=== PATIENT | female | born 1950 | race African-American/Black ===

== ENCOUNTER 2024-10-20 09:43 | Inpatient (IN) | payer OTHER ==
[~2024-10-20] VITALS: Ht 167.6 cm; Wt 90.3 kg
[2024-10-20 09:46] VITALS: O2SAT 99
[2024-10-20] MEDS: ASPIRIN 81MG TABLET PO ONE (10:20)
[2024-10-20 11:17] LABS: CHLORIDE 107 mEq/L (98-107); POTASSIUM 4.1 mEq/L (3.5-5.1); SODIUM 140 mEq/L (136-145)
[2024-10-20 11:18] LABS: BASOPHILS % 0.8 % (0.0-2.0); CALCIUM 9.7 mg/dL (8.7-10.4); CARBON DIOXIDE 26 mEq/L (21-32); EOSINOPHILS % 0.4 % (0.0-5.0); HEMATOCRIT. 38.7 % (36.0-48.0); HEMOGLOBIN. 12.5 g/dL (12.0-16.0); LYMPHOCYTES % 11.6 % (20.0-50.0); MEAN CORPUSCULAR HEMOGLOBIN 28.8 pg (28.0-32.0); MEAN CORPUSCULAR HGB CONC 32.4 g/dL (31.0-37.0); MEAN CORPUSCULAR VOLUME 88.7 fL (81.0-99.0); MEAN PLATELET VOLUME 8.2 fl (7.4-10.4); MONOCYTES % 11.7 % (2.0-8.0); NEUTROPHILS % 75.5 % (40.0-76.0); PLATELET 285 x1000/uL (130-400); RED BLOOD CELL COUNT 4.36 mill/uL (4.2-5.4); WHITE BLOOD COUNT 8.8 x1000/uL (4.5-11.0)
[2024-10-20 11:23] LABS: CREATININE 0.6 mg/dL (0.6-1.0); GLUCOSE 126 mg/dL (70-105); UREA NITROGEN BLOOD 8 mg/dL (9-23)
[2024-10-20 11:24] LABS: TROPONIN I HIGH SENSITIVITY 17 ng/L (3.0-34)
[2024-10-20 11:25] LABS: CREATINE KINASE 131 IU/L (34-145)
[2024-10-20 12:45] VITALS: BP 188/79; PULSE 106; RESP 18; TEMP 35.7; TEMP 35.8; O2SAT 99
[2024-10-20] MEDS ORDERED: IPRATROPIUM/ALBUTEROL 0.5-3(2.5)MG/3ML NEB HHN PRN (12:45)
[2024-10-20] MEDS ORDERED: ACETAMINOPHEN 325MG TABLET PO PRN (12:45)
[2024-10-20] MEDS ORDERED: DEXTROSE 50% WATER 50ML SYRINGE IV PRN (12:45)
[2024-10-20] MEDS ORDERED: DOCUSATE SODIUM 100MG CAPSULE PO PRN (12:45)
[2024-10-20] MEDS ORDERED: LORAZEPAM 0.5MG TABLET PO PRN (12:45)
[2024-10-20] MEDS: BLOOD SUGAR DIAGNOSTIC STRIP TEST SCH (13:00)
[2024-10-20] MEDS ORDERED: AMLODIPINE 5MG TABLET PO SCH (13:00)
[2024-10-20] MEDS: INSULIN LISPRO 100 UNITS/ML SUBCUT SCH (13:20)
[2024-10-20 16:00] VITALS: PULSE 96; RESP 20; TEMP 36.2; O2SAT 100
[2024-10-20 19:32] LABS: CREATINE KINASE 115 IU/L (34-145)
[2024-10-20 19:36] LABS: PARTIAL THROMBOPLASTIN TIME 29.7 sec (23.4-31.0); PROTHROMBIN TIME 11.2 sec (9.6-11.0); VITAMIN B12 SERUM 955 pg/mL (211-911)
[2024-10-20 20:00] VITALS: BP 158/57; PULSE 99; RESP 18; TEMP 35.9; O2SAT 100
[2024-10-20] MEDS: AMLODIPINE 5MG TABLET PO SCH (21:09)
[2024-10-21] VITALS: BP 164/68; PULSE 93; RESP 18; TEMP 36.5; O2SAT 100
[2024-10-21 00:14] LABS: CREATINE KINASE 165 IU/L (34-145)
[2024-10-21] MEDS: CLONIDINE 0.1MG TABLET PO PRN (00:55)
[2024-10-21 04:00] VITALS: BP 148/86; PULSE 91; RESP 18; TEMP 36.5; O2SAT 99
[2024-10-21] MEDS: PANTOPRAZOLE 40MG DR TABLET PO SCH (06:04)
[2024-10-21 06:57] LABS: CALCIUM 9.1 mg/dL (8.7-10.4); CHLORIDE 108 mEq/L (98-107)
[2024-10-21 06:58] LABS: CARBON DIOXIDE 25 mEq/L (21-32); POTASSIUM 3.6 mEq/L (3.5-5.1); SODIUM 142 mEq/L (136-145)
[2024-10-21 07:03] LABS: BASOPHILS % 0.5 % (0.0-2.0); EOSINOPHILS % 0.8 % (0.0-5.0); HEMATOCRIT. 34.8 % (36.0-48.0); HEMOGLOBIN. 11.5 g/dL (12.0-16.0); LYMPHOCYTES % 18.2 % (20.0-50.0); MEAN CORPUSCULAR HEMOGLOBIN 29.4 pg (28.0-32.0); MEAN CORPUSCULAR HGB CONC 33.1 g/dL (31.0-37.0); MEAN CORPUSCULAR VOLUME 88.7 fL (81.0-99.0); MEAN PLATELET VOLUME 8.4 fl (7.4-10.4); MONOCYTES % 12.4 % (2.0-8.0); NEUTROPHILS % 68.1 % (40.0-76.0); PLATELET 284 x1000/uL (130-400); RED BLOOD CELL COUNT 3.92 mill/uL (4.2-5.4); RED CELL DISTRIBUTION WIDTH 13.7 % (11.6-14.6); WHITE BLOOD COUNT 6.7 x1000/uL (4.5-11.0)
[2024-10-21 07:04] LABS: CREATININE 0.8 mg/dL (0.6-1.0); GLUCOSE 134 mg/dL (70-105); UREA NITROGEN BLOOD 8 mg/dL (9-23)
[2024-10-21 08:00] VITALS: BP 158/74; PULSE 93; RESP 17; TEMP 36.9; O2SAT 99
[2024-10-21] MEDS: ENOXAPARIN 40MG/0.4ML SYR SUBCUT SCH (09:00)
[2024-10-21 12:00] VITALS: BP 143/56; PULSE 86; RESP 18; TEMP 36.6; O2SAT 99
[2024-10-21] MEDS ORDERED: LORAZEPAM 0.5MG TABLET PO PRN (12:45)
[2024-10-21] MEDS: ACETAMINOPHEN 325MG TABLET PO PRN (13:44)
[2024-10-21] MEDS ORDERED: GADOTERATE MEGLUMINE 5 MMOL/10 ML VIAL IV ONE (15:38)
[2024-10-21 16:00] VITALS: BP 154/68; PULSE 80; RESP 18; TEMP 36.2; O2SAT 99
[2024-10-21] MEDS: DEXAMETHASONE 4MG TABLET PO SCH (17:49)
[2024-10-21 20:00] VITALS: BP 158/66; PULSE 90; RESP 16; TEMP 36.8; O2SAT 97
[2024-10-22] VITALS (29 sets, daily range): BP systolic 129–181; BP diastolic 56–124; PULSE 87–101; RESP 11–30; TEMP 35.9–37; O2SAT 96–99
[2024-10-22] MEDS: HYDRALAZINE HCL 10MG TABLET PO PRN (05:23)
[2024-10-22 07:09] LABS: CHLORIDE 110 mEq/L (98-107); POTASSIUM 3.9 mEq/L (3.5-5.1); SODIUM 141 mEq/L (136-145)
[2024-10-22 07:10] LABS: CARBON DIOXIDE 25 mEq/L (21-32)
[2024-10-22 07:11] LABS: CALCIUM 9.2 mg/dL (8.7-10.4)
[2024-10-22 07:15] LABS: GLUCOSE 132 mg/dL (70-105); UREA NITROGEN BLOOD 6 mg/dL (9-23)
[2024-10-22 08:51] LABS: CREATININE 0.5 mg/dL (0.6-1.0)
[2024-10-22] MEDS: AMLODIPINE 5MG TABLET PO SCH ×2 (08:52→17:09)
[2024-10-22] MEDS: KETOROLAC 15MG/ML VIAL IV PRN (12:10)
[2024-10-22] MEDS: CLONIDINE 0.1MG TABLET PO PRN (20:08)
[2024-10-22] MEDS: DEXT 5%/LACTATED RINGERS 1,000 ML IV SCH (20:28)
[2024-10-22] MEDS: NICARDIPINE 100 MG in SODIUM CHLORIDE 0.9% 60 ML IV PRN (20:55)
[2024-10-22] MEDS ORDERED: LEVETIRACETAM 500MG PREMIX 100 ML IV SCH (21:00)
[2024-10-23] VITALS (63 sets, daily range): BP systolic 105–174; BP diastolic 50–152; PULSE 66–98; RESP 12–25; TEMP 36.1–36.9; O2SAT 89–100
[2024-10-23] MEDS: LEVETIRACETAM 500MG PREMIX 100 ML IV SCH (05:12)
[2024-10-23 06:16] LABS: CHLORIDE 108 mEq/L (98-107); POTASSIUM 3.6 mEq/L (3.5-5.1); SODIUM 140 mEq/L (136-145)
[2024-10-23 06:17] LABS: CARBON DIOXIDE 25 mEq/L (21-32)
[2024-10-23 06:22] LABS: BASOPHILS % 0.2 % (0.0-2.0); CREATININE 0.6 mg/dL (0.6-1.0); GLUCOSE 154 mg/dL (70-105); HEMOGLOBIN. 11.4 g/dL (12.0-16.0); MEAN CORPUSCULAR HEMOGLOBIN 29.3 pg (28.0-32.0); MEAN CORPUSCULAR HGB CONC 32.7 g/dL (31.0-37.0); MEAN CORPUSCULAR VOLUME 89.8 fL (81.0-99.0); MEAN PLATELET VOLUME 8.7 fl (7.4-10.4); NEUTROPHILS % 85.8 % (40.0-76.0); PLATELET 297 x1000/uL (130-400); RED CELL DISTRIBUTION WIDTH 13.7 % (11.6-14.6); UREA NITROGEN BLOOD 12 mg/dL (9-23); WHITE BLOOD COUNT 9.3 x1000/uL (4.5-11.0)
[2024-10-23 06:24] LABS: PHOSPHORUS 2.8 mg/dL (2.5-4.9)
[2024-10-23 06:29] LABS: PARTIAL THROMBOPLASTIN TIME 26.7 sec (23.4-31.0); PROTHROMBIN TIME 10.7 sec (9.6-11.0)
[2024-10-23] MEDS ORDERED: GENTAMICIN SULF 40MG/ML 2ML VIAL ONE (08:50)
[2024-10-23] MEDS ORDERED: LIDOCAINE HCL/EPINEPHRINE 1%-EPI 1:100,000 20ML VIAL ONE (08:50)
[2024-10-23] MEDS ORDERED: BACITRACIN 14GM TUBE TOP ONE (08:50)
[2024-10-23] MEDS ORDERED: THROMBIN (BOVINE) 5000 UNITS/VIAL TOP ONE (08:50)
[2024-10-23] MEDS: DEXAMETHASONE 4MG/ML 1ML VIAL IV SCH (09:21)
[2024-10-23] MEDS ORDERED: CEFAZOLIN SODIUM 1000MG/VIAL ONE (10:19)
[2024-10-23] MEDS ORDERED: ETOMIDATE 2MG/ML 10ML VIAL IV ONE (10:19)
[2024-10-23] MEDS ORDERED: ROCURONIUM BROMIDE 10MG/ML VIAL 5ML IV ONE (10:19)
[2024-10-23] MEDS ORDERED: MIDAZOLAM HCL 2 MG/2 ML VIAL ONE ×2 (10:20→10:21)
[2024-10-23] MEDS ORDERED: FENTANYL CITRATE/PF 50MCG/ML 2ML VIAL ONE (10:20)
[2024-10-23] MEDS ORDERED: CLINDAMYCIN 900MG PREMIX 50 ML IV ONE (10:40)
[2024-10-23] MEDS ORDERED: MANNITOL 20% 500 ML IV ONE (11:16)
[2024-10-23] MEDS: KCL 20MEQ/100ML PREMIX 100 ML IV SCH (11:30)
[2024-10-23] MEDS ORDERED: PROPOFOL 200MG/20ML VIAL IV ONE (12:02)
[2024-10-23] MEDS ORDERED: SUGAMMADEX SODIUM 200MG/2ML VIAL IV ONE (12:54)
[2024-10-23] MEDS ORDERED: NEOSTIGMINE METHYLSULFATE 1MG/ML 10 ML VIAL ONE (13:05)
[2024-10-23] MEDS ORDERED: GLYCOPYRROLATE 0.2 MG/ML 2ML VIAL ONE ×2 (13:06)
[2024-10-23] MEDS ORDERED: LEVETIRACETAM 500 MG in SODIUM CHLORIDE 0.9% 100 ML IV SCH (13:15)
[2024-10-23] MEDS ORDERED: NALOXONE HCL 0.4MG/ML VIAL IV PRN (13:30)
[2024-10-23] MEDS: MORPHINE SULFATE 4 MG/ML INJ (FOR IV/IM USE) IV PRN (14:01)
[2024-10-23] MEDS: NICARDIPINE 100 MG in SODIUM CHLORIDE 0.9% 60 ML IV PRN (14:36)
[2024-10-23] MEDS ORDERED: LABETALOL IV PRN (20:15)
[2024-10-23] MEDS ORDERED: DEXT 5% IV PRN (20:15)
[2024-10-23] MEDS ORDERED: WATER IV PRN (20:15)
[2024-10-23] MEDS: LABETALOL 5MG/ML 4ML INJ IV NR (20:37)
[2024-10-24] VITALS (100 sets, daily range): BP systolic 83–154; BP diastolic 41–109; PULSE 69–110; RESP 12–25; TEMP 36.1–36.8; O2SAT 96–100
[2024-10-24] MEDS: LABETALOL 5MG/ML 4ML INJ IV PRN (00:24)
[2024-10-24 06:35] LABS: HEMATOCRIT. 34.7 % (36.0-48.0); HEMOGLOBIN. 11.5 g/dL (12.0-16.0); MEAN CORPUSCULAR HGB CONC 33.3 g/dL (31.0-37.0); MEAN CORPUSCULAR VOLUME 86.9 fL (81.0-99.0); MEAN PLATELET VOLUME 8.7 fl (7.4-10.4); PLATELET 341 x1000/uL (130-400); RED BLOOD CELL COUNT 3.99 mill/uL (4.2-5.4); WHITE BLOOD COUNT 20.4 x1000/uL (4.5-11.0)
[2024-10-24 06:37] LABS: DIFFERENTIAL COMMENT 1
[2024-10-24 06:49] LABS: CARBON DIOXIDE 23 mEq/L (21-32)
[2024-10-24 06:50] LABS: CALCIUM 9.1 mg/dL (8.7-10.4)
[2024-10-24 06:54] LABS: CREATININE 0.6 mg/dL (0.6-1.0)
[2024-10-24 06:55] LABS: GLUCOSE 155 mg/dL (70-105); UREA NITROGEN BLOOD 14 mg/dL (9-23)
[2024-10-24 07:48] LABS: CHLORIDE 112 mEq/L (98-107); POTASSIUM 3.8 mEq/L (3.5-5.1); SODIUM 145 mEq/L (136-145)
[2024-10-24] MEDS: LOSARTAN 50 MG TABLET PO SCH ×2 (08:07→14:00)
[2024-10-24] MEDS: NYSTATIN POWDER 15GM TOP SCH (08:07)
[2024-10-24 08:25] LABS: ALANINE AMINOTRANSFERASE 22 IU/L (10-49); ALBUMIN 2.6 g/dL (3.2-4.8); ASPARTATE AMINOTRANSFERASE 29 IU/L (<34)
[2024-10-24 08:26] LABS: BILIRUBIN DIRECT 0.1 mg/dL (<=3.0); BILIRUBIN TOTAL 0.3 mg/dL (0.1-1.0)
[2024-10-24] MEDS: KCL 20MEQ/100ML PREMIX 100 ML IV NR (09:09)
[2024-10-24 10:43] LABS: PLATELET ESTIMATE NORMAL
[2024-10-24] MEDS: AMLODIPINE 10MG TABLET PO SCH (14:00)
[2024-10-24] MEDS: GUAIFENESIN 200MG/10ML SUGAR FREE UDC PO PRN (20:24)
[2024-10-25] VITALS (102 sets, daily range): BP systolic 89–170; BP diastolic 35–121; PULSE 79–111; RESP 12–30; TEMP 36.5–36.7; O2SAT 96–100
[2024-10-25 05:45] LABS: HEMOGLOBIN. 11.3 g/dL (12.0-16.0); MEAN CORPUSCULAR HEMOGLOBIN 29.1 pg (28.0-32.0); MEAN CORPUSCULAR HGB CONC 33.2 g/dL (31.0-37.0); MEAN CORPUSCULAR VOLUME 87.6 fL (81.0-99.0); RED BLOOD CELL COUNT 3.88 mill/uL (4.2-5.4); RED CELL DISTRIBUTION WIDTH 14.4 % (11.6-14.6); WHITE BLOOD COUNT 23.3 x1000/uL (4.5-11.0)
[2024-10-25 05:55] LABS: CALCIUM 9.2 mg/dL (8.7-10.4); CARBON DIOXIDE 22 mEq/L (21-32); CHLORIDE 114 mEq/L (98-107); POTASSIUM 4.4 mEq/L (3.5-5.1); SODIUM 145 mEq/L (136-145)
[2024-10-25 06:01] LABS: CREATININE 0.7 mg/dL (0.6-1.0); GLUCOSE 149 mg/dL (70-105); UREA NITROGEN BLOOD 19 mg/dL (9-23)
[2024-10-25 06:03] LABS: PHOSPHORUS 2.8 mg/dL (2.5-4.9)
[2024-10-25 06:22] LABS: DIFFERENTIAL COMMENT 1
[2024-10-25] MEDS ORDERED: OLANZAPINE 5MG TABLET PO NR (06:45)
[2024-10-25 09:03] LABS: PLATELET ESTIMATE NORMAL
[2024-10-25 09:10] LABS: PLATELET 362 x1000/uL (130-400)
[2024-10-25] MEDS: DIPHENHYDRAMINE 50MG/ML VIAL IV PRN (15:05)
[2024-10-26] VITALS (51 sets, daily range): BP systolic 113–161; BP diastolic 53–105; PULSE 82–100; RESP 13–30; TEMP 36.6–37.2; O2SAT 96–100
[2024-10-26 06:36] LABS: HEMATOCRIT 29.8 % (36.0-48.0); MEAN CORPUSCULAR HEMOGLOBIN 29.9 pg (28.0-32.0); MEAN CORPUSCULAR HGB CONC 33.6 g/dL (31.0-37.0); MEAN CORPUSCULAR VOLUME 88.9 fL (81.0-99.0); PLATELET 297 x1000/uL (130-400); RED BLOOD CELL COUNT 3.35 mill/uL (4.2-5.4); RED CELL DISTRIBUTION WIDTH 14.1 % (11.6-14.6); WHITE BLOOD COUNT 13.1 x1000/uL (4.5-11.0)
[2024-10-26 06:41] LABS: CHLORIDE 113 mEq/L (98-107); POTASSIUM 4.1 mEq/L (3.5-5.1); SODIUM 145 mEq/L (136-145)
[2024-10-26 06:42] LABS: CALCIUM 8.8 mg/dL (8.7-10.4); CARBON DIOXIDE 24 mEq/L (21-32)
[2024-10-26 06:47] LABS: CREATININE 0.5 mg/dL (0.6-1.0); GLUCOSE 134 mg/dL (70-105); UREA NITROGEN BLOOD 15 mg/dL (9-23)
[2024-10-26 06:49] LABS: PHOSPHORUS 2.6 mg/dL (2.5-4.9)
[2024-10-27] VITALS: BP 161/70; PULSE 87; RESP 18; TEMP 36.6; O2SAT 100
[2024-10-27 04:00] VITALS: BP 156/74; PULSE 82; RESP 18; TEMP 36.6; O2SAT 100
[2024-10-27 07:18] LABS: HEMATOCRIT. 32.9 % (36.0-48.0); HEMOGLOBIN. 10.6 g/dL (12.0-16.0); MEAN CORPUSCULAR HEMOGLOBIN 28.2 pg (28.0-32.0); MEAN CORPUSCULAR HGB CONC 32.4 g/dL (31.0-37.0); MEAN PLATELET VOLUME 8.4 fl (7.4-10.4); PLATELET 277 x1000/uL (130-400); RED BLOOD CELL COUNT 3.78 mill/uL (4.2-5.4); RED CELL DISTRIBUTION WIDTH 13.9 % (11.6-14.6)
[2024-10-27 07:27] LABS: CARBON DIOXIDE 24 mEq/L (21-32); CHLORIDE 111 mEq/L (98-107); POTASSIUM 3.9 mEq/L (3.5-5.1); SODIUM 142 mEq/L (136-145)
[2024-10-27 07:28] LABS: CALCIUM 8.5 mg/dL (8.7-10.4)
[2024-10-27 07:31] LABS: DIFFERENTIAL COMMENT 1
[2024-10-27 07:33] LABS: CREATININE 0.5 mg/dL (0.6-1.0); GLUCOSE 127 mg/dL (70-105)
[2024-10-27 07:34] LABS: UREA NITROGEN BLOOD 17 mg/dL (9-23)
[2024-10-27 07:36] LABS: PHOSPHORUS 2.5 mg/dL (2.5-4.9)
[2024-10-27 08:13] VITALS: BP 154/70; PULSE 83; RESP 18; TEMP 36.7; O2SAT 98
[2024-10-27] MEDS: HYDRALAZINE HCL 10MG TABLET PO SCH (11:58)
[2024-10-27 12:00] VITALS: BP 167/69; PULSE 87; RESP 20; TEMP 36.2; O2SAT 98
[2024-10-27] MEDS: ONDANSETRON HCL 4MG/2ML INJ IV PRN (15:11)
[2024-10-27 16:00] VITALS: BP 148/72; PULSE 92; RESP 20; TEMP 36.4; O2SAT 95
[2024-10-27 18:56] LABS: PLATELET ESTIMATE NORMAL
[2024-10-27 20:00] VITALS: BP 193/86; PULSE 93; RESP 20; TEMP 36; O2SAT 97
[2024-10-28] VITALS: BP 166/64; PULSE 95; RESP 20; TEMP 36.1; O2SAT 98
[2024-10-28 04:00] VITALS: BP 158/70; PULSE 90; RESP 20; TEMP 36.3; O2SAT 98
[2024-10-28 08:00] VITALS: BP 158/78; PULSE 96; RESP 20; TEMP 36.1; O2SAT 95
[2024-10-28] MEDS ORDERED: GADOTERATE MEGLUMINE 5 MMOL/10 ML VIAL IV ONE (10:08)
[2024-10-28] MEDS: HYDRALAZINE HCL 50MG TABLET PO SCH (10:58)
[2024-10-28 12:00] VITALS: BP 124/70; PULSE 90; RESP 20; TEMP 37; O2SAT 99
[2024-10-28 16:00] VITALS: BP 168/58; PULSE 94; RESP 20; TEMP 37.6; O2SAT 98
[2024-10-28 20:00] VITALS: BP 159/71; PULSE 105; RESP 20; TEMP 36.3; O2SAT 98
[2024-10-28] MEDS: LEVETIRACETAM 500MG TABLET PO NR (23:26)
[2024-10-29] VITALS: BP 124/60; PULSE 106; RESP 20; TEMP 36.1; O2SAT 94
[2024-10-29 04:00] VITALS: BP 155/56; PULSE 101; RESP 19; TEMP 36.3; O2SAT 95
[2024-10-29 06:51] LABS: CHLORIDE 106 mEq/L (98-107); POTASSIUM 3.8 mEq/L (3.5-5.1); SODIUM 138 mEq/L (136-145)
[2024-10-29 06:52] LABS: CALCIUM 8.6 mg/dL (8.7-10.4); CARBON DIOXIDE 23 mEq/L (21-32)
[2024-10-29 06:57] LABS: CREATININE 0.6 mg/dL (0.6-1.0); GLUCOSE 117 mg/dL (70-105); UREA NITROGEN BLOOD 9 mg/dL (9-23)
[2024-10-29 07:01] LABS: HEMATOCRIT 35.9 % (36.0-48.0); MEAN CORPUSCULAR HEMOGLOBIN 29.6 pg (28.0-32.0); MEAN CORPUSCULAR HGB CONC 33.4 g/dL (31.0-37.0); MEAN CORPUSCULAR VOLUME 88.8 fL (81.0-99.0); PLATELET 259 x1000/uL (130-400); RED BLOOD CELL COUNT 4.05 mill/uL (4.2-5.4); RED CELL DISTRIBUTION WIDTH 14.4 % (11.6-14.6); WHITE BLOOD COUNT 9.2 x1000/uL (4.5-11.0)
[2024-10-29 08:00] VITALS: BP_SYST 148; BP_SYST 165; BP_DIAS 76; PULSE 101; PULSE 103; RESP 20; TEMP 36.5; TEMP 37.2; O2SAT 93; O2SAT 97
[2024-10-29] MEDS: LEVETIRACETAM 500MG TABLET PO SCH (09:32)
[2024-10-29 12:00] VITALS: BP 148/76; PULSE 101; RESP 20; TEMP 36.5; O2SAT 97
[2024-10-29] MEDS ORDERED: LIDOCAINE HCL 1% 10 MG/ML 10ML VIAL ONE ×2 (13:24→13:42)
[2024-10-29 16:00] VITALS: BP 146/76; PULSE 106; RESP 20; TEMP 37; O2SAT 95
[2024-10-29] MEDS ORDERED: TRAMADOL HCL/ACETAMINOPHEN 37.5/325MG TABLET PO PRN (17:09)
[2024-10-29] MEDS ORDERED: MORPHINE SULFATE 2 MG/ML INJ (NOT FOR IM USE) IV PRN (17:15)
[2024-10-29] MEDS: TRAMADOL HCL/ACETAMINOPHEN 37.5/325MG TABLET PO SCH (18:01)
[2024-10-29] MEDS: METOPROLOL TARTRATE 50MG TABLET PO SCH (18:01)
[2024-10-29 20:00] VITALS: BP 158/59; PULSE 73; RESP 20; TEMP 36.4; O2SAT 96
[2024-10-30] VITALS: BP 114/53; PULSE 70; RESP 21; TEMP 35.9; O2SAT 95
[2024-10-30 04:00] VITALS: BP 135/60; PULSE 70; RESP 19; TEMP 35.9; O2SAT 97
[2024-10-30 12:00] VITALS: BP 102/42; PULSE 62; RESP 18; TEMP 36.2; O2SAT 99
[2024-10-30 16:00] VITALS: BP 112/52; PULSE 64; RESP 18; TEMP 36.4; O2SAT 98
[2024-10-30 20:00] VITALS: BP 135/56; PULSE 73; RESP 17; TEMP 36.3; O2SAT 97
[2024-10-30] MEDS: LOSARTAN 50 MG TABLET PO SCH (21:13)
[2024-10-31] VITALS: BP 150/88; PULSE 76; RESP 16; TEMP 36.2; O2SAT 99
[2024-10-31 04:00] VITALS: BP 150/62; PULSE 73; RESP 17; TEMP 36.1; O2SAT 98
[2024-10-31 08:00] VITALS: BP 153/63; PULSE 70; RESP 18; TEMP 36.6; O2SAT 100
[2024-10-31 12:00] VITALS: BP 143/63; PULSE 60; RESP 17; TEMP 36.7; O2SAT 97
[2024-10-31 16:00] VITALS: BP 128/65; PULSE 70; RESP 18; TEMP 36.7; O2SAT 96
[2024-10-31] MEDS ORDERED: METO-539 PO (17:03)
[2024-10-31] MEDS ORDERED: KEPP500 PO (17:03)
[2024-10-31] MEDS ORDERED: AMLO10TA80 PO (17:03)
[2024-10-31] MEDS ORDERED: TRAM-534 PO (17:03)
[2024-10-31] MEDS ORDERED: HYDR50TA39 PO (17:03)
[2024-10-31] MEDS ORDERED: PANT40TA51 PO (17:03)
[2024-10-31] MEDS ORDERED: LOSA50TA41 PO (17:03)
[2024-10-31 17:59] VITALS: PULSE 73
== END 2024-10-31 19:05 | DRG 25 ==
LOC: EDBEDREQ 10:10 → ER 10:37 → EDBEDREQ 12:07 → EDBEDREQTM 12:07 → EDBEDREQSVC 12:07 → ER 12:30 → 7EST 16:29 → MICUSO 10-22 13:37 → 8WST 10-26 17:50
PROVIDERS: ADMIT Hospitalist; ATTEND Hospitalist
PROC: 00B00ZZ Excision of Brain, Open Approach (ICD-10-PCS; principal; 2024-10-23)
PROC: 00U207Z Supplement Dura Mater with Autologous Tissue Substitute, Open Approach (ICD-10-PCS; 2024-10-23)
PROC: 4A00X4Z Measurement of Central Nervous Electrical Activity, External Approach (ICD-10-PCS; 2024-10-23)
PROC: 02HV33Z Insertion of Infusion Device into Superior Vena Cava, Percutaneous Approach (ICD-10-PCS; 2024-10-29)
PROC: B548ZZA Ultrasonography of Superior Vena Cava, Guidance (ICD-10-PCS; 2024-10-29)
PROC: B5181ZA Fluoroscopy of Superior Vena Cava using Low Osmolar Contrast, Guidance (ICD-10-PCS; 2024-10-29)
DX: D32.0 Benign neoplasm of cerebral meninges (principal); G93.6 Cerebral edema; L97.929 Non-pressure chronic ulcer of unspecified part of left lower leg with unspecified severity; G93.40 Encephalopathy, unspecified; R47.01 Aphasia; G90.89 Other disorders of autonomic nervous system; E78.5 Hyperlipidemia, unspecified; R90.0 Intracranial space-occupying lesion found on diagnostic imaging of central nervous system; I16.0 Hypertensive urgency; L30.9 Dermatitis, unspecified; R29.6 Repeated falls; F41.9 Anxiety disorder, unspecified; T50.995A Adverse effect of other drugs, medicaments and biological substances, initial encounter; R23.4 Changes in skin texture; L85.3 Xerosis cutis; E11.9 Type 2 diabetes mellitus without complications; I87.8 Other specified disorders of veins; Z79.4 Long term (current) use of insulin; E66.9 Obesity, unspecified; I10 Essential (primary) hypertension; R13.10 Dysphagia, unspecified; D64.9 Anemia, unspecified; Z91.148 Patient's other noncompliance with medication regimen for other reason; Z74.01 Bed confinement status; Z79.84 Long term (current) use of oral hypoglycemic drugs; Z79.899 Other long term (current) drug therapy; Z88.0 Allergy status to penicillin; Y92.89 Other specified places as the place of occurrence of the external cause
CPT/HCPCS: 36415; 36573; 70553; 71045; 72170; 73552; 80048; 80061; 80076; 82040; 82550; 82607; 82962; 83036; 83735; 83880; 84100; 84443; 84484; 85025; 85027; 86850; 86900; 88305; 88307; 93005; 93306; 95816; 95829; 95925; 97110; 97162; 97166; 97168; 97530; 97535; 99285; A4606; A6261; A6449; A9577; C1725; C1758; J0690; J1100; J1200; J1580; J1650; J1815; J1885; J1953; J2003; J2004; J2250; J2270; J2405; J2704; J2710; J3010; J3480; J3490; J7050; J7120; J7121; J8540; C1713